=== PATIENT | male | born 1965 ===

== ENCOUNTER 2016-12-13 23:20 | Emergency (ER) | payer MEDICAID ==
[2016-12-13] MEDS ORDERED: Sodium Chloride 0.9% 1,000 ML IV STA (23:45)
--- NOTE | 2016-12-14 00:09 | ED PDOC ---
HPI: General Adult Time Seen by Provider: 12/13/16 23:43 Chief Complaint (Nursing): GI Problem Chief Complaint (Provider): fever, abd pain, diarrhea, headache, runny nose History Per: Patient History/Exam Limitations: no limitations Onset/Duration Of Symptoms: Days (1) Have you had recent travel within the past 21 days to any of the following countries: [place], [place], [place] or [place]?: No Current Symptoms Are (Timing): Still Present Additional Complaint(s): 51yo male with no PMHx presents to the ED with c/o fever, abd pain, watery diarrhea, headache, and runny nose x 1 day. Denies sick contacts or recent travel. Taking Claritin with no relief. Past Medical History Reviewed: Historical Data, Nursing Documentation, Vital Signs Vital Signs: Last Vital Signs Temp 101.4 F H 12/14/16 00:21 Pulse 93 H 12/13/16 23:38 Resp 16 12/13/16 23:38 BP 153/84 H 12/13/16 23:38 Pulse Ox 100 12/14/16 00:13 - Medical History PMH: No Chronic Diseases - Surgical History Surgical History: No Surg Hx - Family History Family History: States: No Known Family Hx - Home Medications Home Medications: Ambulatory Orders Medication Instructions Recorded Dicyclomine [Bentyl] 10 mg PO QID #20 cap 12/14/16 Ibuprofen [Motrin Tab] 600 mg PO Q6 #30 tab 12/14/16 Loperamide [Imodium] 2 mg PO PRN PRN #12 cap 12/14/16 - Allergies Allergies/Adverse Reactions: Allergies Allergy/AdvReac Type Severity Reaction Status Date / Time No Known Allergies Allergy Verified 12/13/16 23:38 Review of Systems ROS Statement: Except As Marked, All Systems Reviewed And Found Negative Constitutional: Positive for: Fever ENT: Positive for: Nose Discharge Gastrointestinal: Positive for: Abdominal Pain, Diarrhea Neurological: Positive for: Headache Physical Exam - Reviewed Nursing Documentation Reviewed: Yes Vital Signs Reviewed: Yes - Physical Exam Appears: Positive for: Well, No Acute Distress Head Exam: Positive for: ATRAUMATIC, NORMAL INSPECTION, NORMOCEPHALIC Skin: Positive for: Normal Color, Warm, Dry Eye Exam: Positive for: Normal appearance, EOMI, PERRL ENT: Positive for: Normal ENT Inspection Neck: Positive for: Normal, Painless ROM, Supple Cardiovascular/Chest: Positive for: Regular Rate, Rhythm. Negative for: Murmur , Tachycardia Respiratory: Positive for: Normal Breath Sounds. Negative for: Wheezing, Respiratory Distress Gastrointestinal/Abdominal: Positive for: Normal Exam, Bowel Sounds, Soft. Negative for: Tenderness Back: Positive for: Normal Inspection Extremity: Positive for: Normal ROM. Negative for: Deformity, Swelling Neurologic/Psych: Positive for: Alert, Oriented. Negative for: Motor/Sensory Deficits - Laboratory Results Result Diagrams: 12/14/16 00:10 12/14/16 00:10 - ECG O2 Sat by Pulse Oximetry: 100 Pulse Ox Interpretation: Normal (RA) Medical Decision Making Medical Decision Makin: Impression: URI vs. gastroenteritis Plan: Labs EKG CXR IVF, Toradol 15mg IVP, Tylenol 650mg PO flu swab reassess 0134: Patient feeling better. Instructed patient to f/u w/ Dr. Edmund Samayoa. Return precautions given and patient discharged at this time. Scribe Attestation: Documented by Misael Harrington acting as a scribe for Saravanan Middleton MD. Provider Scribe Attestation: All medical record entries made by the Scribe were at my direction and personally dictated by me. I have reviewed the chart and agree that the record accurately reflects my personal performance of the history, physical exam, medical decision making, and the department course for this patient. I have also personally directed, reviewed, and agree with the discharge instructions and disposition. Disposition - Clinical Impression Clinical Impression: Gastroenteritis - Patient ED Disposition Is Patient to be Admitted: No - Disposition Referrals: Edmund Samayoa MD [Primary Care Provider] - Disposition: Routine/Home Disposition Time: 01:34 Condition: STABLE Prescriptions: Dicyclomine [Bentyl] 10 mg PO QID #20 cap Loperamide [Imodium] 2 mg PO PRN PRN #12 cap PRN Reason: Diarrhea Ibuprofen [Motrin Tab] 600 mg PO Q6 #30 tab Instructions: Loperamide (By mouth), Acute Diarrhea (ED) Print Language: EMIRATI
[2016-12-14 00:32] LABS: BASO % 0.4 % (0.0-2.0); EOS # 0.1 K/uL (0.0-0.7); EOS % 0.9 % (0.0-4.0); HEMATOCRIT 44.9 % (35.0-51.0); LYMPH # 0.6 K/uL (1.0-4.3); LYMPH % 8.3 % (20.0-40.0); MEAN CELL VOLUME 80.4 fl (80.0-94.0); MEAN CORPUSCULAR HEMOGLOBIN 26.7 pg (27.0-31.0); MEAN CORPUSCULAR HGB CONC 33.2 g/dL (33.0-37.0); MEAN PLATELET VOLUME 9.5 fl (7.2-11.7); MONO # 0.6 K/uL (0.0-0.8); MONO % 7.8 % (0.0-10.0); NEUT # 6.1 K/uL (1.8-7.0); NEUT % 82.6 % (50.0-75.0); NRBC % 0.1 % (0.0-0.0); PLATELET COUNT 196 K/uL (130-400); RED CELL DISTRIBUTION WIDTH 14.3 % (11.5-14.5); WHITE BLOOD COUNT 7.4 K/uL (4.8-10.8)
[2016-12-14 00:38] LABS: ALB/GLOB RATIO 1.3 (1.0-2.1); ALKALINE PHOSPHATASE 56 U/L (38-126); ALT/SGPT 37 U/L (21-72); AST/SGOT 33 U/L (17-59); BILIRUBIN,TOTAL 0.7 mg/dl (0.2-1.3); BLOOD UREA NITROGEN 15 mg/dl (9-20); CALCIUM 9.5 mg/dL (8.4-10.2); CARBON DIOXIDE 26 mmol/L (22-30); CHLORIDE 101 mmol/L (98-107); GFR AFRICAN-AMERICAN > 60; GLUCOSE,RANDOM 112 mg/dL (75-110); LIPASE 40 U/L (23-300); POTASSIUM 3.8 MMOL/L (3.6-5.0); SODIUM 141 mmol/l (132-148)
[2016-12-14 01:42] LABS: EOSINOPHIL 3 % (0-7); NEUTROPHIL 87 % (42-75); TOTAL CELLS COUNTED 100
[2016-12-14 01:44] VITALS: BP 120/76; PULSE 72; RESP 18; TEMP 99.3; O2SAT 99
--- NOTE | 2016-12-14 08:21 | RAD ---
HISTORY: r/o PNA COMPARISON: No prior. FINDINGS: LUNGS: No active pulmonary disease. PLEURA: No significant pleural effusion identified, no pneumothorax apparent. CARDIOVASCULAR: Normal. OSSEOUS STRUCTURES: Thoracic spondylosis VISUALIZED UPPER ABDOMEN: Normal. OTHER FINDINGS: None. IMPRESSION: No active disease.
--- NOTE | 2016-12-14 21:28 | CARD ---
APPROVED REPORT EKG Measurement Heart [id number] <Conclusion> Normal sinus rhythm Normal ECG
== END 2016-12-14 01:47 | disposition home or self-care (01) ==
LOC: H.ER 23:20
DX: K52.9 Noninfective gastroenteritis and colitis, unspecified (principal); R19.7 Diarrhea, unspecified; R51 Headache; R50.9 Fever, unspecified

== ENCOUNTER 2017-10-18 18:28 | Emergency (ER) | payer MEDICAID ==
[2017-10-18 20:17] VITALS: RESP 16
--- NOTE | 2017-10-18 21:23 | ED PDOC ---
HPI: CCC, URI, Sore Throat Time Seen by Provider: 10/18/17 20:39 Chief Complaint (Nursing): Flu-like Symptoms Chief Complaint (Provider): flu-like symptoms History Per: Patient History/Exam Limitations: no limitations Onset/Duration Of Symptoms: Days (2) Current Symptoms Are (Timing): Still Present Location Of Pain: Ear(s), Throat, Diffuse Myalgias, Headache Associated Symptoms: Fever, Chills, Cough, Sputum, Myalgias Additional History Per: Patient Additional Complaint(s): 52 y/o male presents with flu-like symptoms x 2 days. Patient reports fever, headache, bodyaches, chills, productive cough. Denies nausea/vomiting, chest pain, shortness of breath, abdominal pain, changes in bowel movements, recent travel, sick contacts. No medication taken for relief thus far. Past Medical History Reviewed: Historical Data, Nursing Documentation, Vital Signs Vital Signs: Last Vital Signs Temp 100.1 F H 10/18/17 22:47 Pulse 78 10/18/17 22:47 Resp 16 10/18/17 22:47 BP 126/73 10/18/17 22:47 Pulse Ox 92 L 10/18/17 22:47 - Medical History PMH: No Chronic Diseases - Surgical History Surgical History: No Surg Hx - Family History Family History: States: No Known Family Hx - Home Medications Home Medications: Ambulatory Orders Medication Instructions Recorded Dicyclomine [Bentyl] 10 mg PO QID #20 cap 12/14/16 Ibuprofen [Motrin Tab] 600 mg PO Q6 #30 tab 12/14/16 Loperamide [Imodium] 2 mg PO PRN PRN #12 cap 12/14/16 Ibuprofen [Motrin Tab] 1 tab PO Q6 PRN #20 tab 10/18/17 Oseltamivir [Tamiflu] 75 mg PO BID #9 cap 10/18/17 - Allergies Allergies/Adverse Reactions: Allergies Allergy/AdvReac Type Severity Reaction Status Date / Time No Known Allergies Allergy Verified 10/18/17 20:14 Review of Systems ROS Statement: Except As Marked, All Systems Reviewed And Found Negative Constitutional: Positive for: Fever, Chills Respiratory: Positive for: Cough Physical Exam - Reviewed Nursing Documentation Reviewed: Yes Vital Signs Reviewed: Yes - Physical Exam Appears: Positive for: Well, Non-toxic, No Acute Distress Head Exam: Positive for: ATRAUMATIC, NORMAL INSPECTION, NORMOCEPHALIC Skin: Positive for: Normal Color Eye Exam: Positive for: Normal appearance ENT: Positive for: Normal ENT Inspection Cardiovascular/Chest: Positive for: Regular Rate, Rhythm Respiratory: Positive for: Normal Breath Sounds Gastrointestinal/Abdominal: Positive for: Normal Exam Back: Positive for: Normal Inspection Extremity: Positive for: Normal ROM Neurologic/Psych: Positive for: Alert, Oriented - ECG O2 Sat by Pulse Oximetry: 100 - Radiology X-Ray: Viewed By Hi X-Ray Interpretation: No Acute Disease - Progress ED Course And Treament: Ibuprofen, chest xray Patient educated on findings, discharged with rx Tamiflu (dose given in ED), Ibuprofen Advised fluids, rest. Follow up PMD 2-3 days. Return precautions given. Disposition - Clinical Impression Clinical Impression: Influenza-like symptoms - Patient ED Disposition Is Patient to be Admitted: No Counseled Patient/Family Regarding: Studies Performed, Diagnosis, Need For Followup, Rx Given - Disposition Disposition: Routine/Home Disposition Time: 23:06 Condition: IMPROVED Prescriptions: Ibuprofen [Motrin Tab] 1 tab PO Q6 PRN #20 tab PRN Reason: Fever >100.4 F Oseltamivir [Tamiflu] 75 mg PO BID #9 cap Instructions: Influenza (ED) Forms: [employer] (Vietnamese)
[2017-10-18 22:48] VITALS: BP 126/73; PULSE 78; TEMP 100.1
[2017-10-18 23:08] VITALS: O2SAT 97
--- NOTE | 2017-10-19 11:38 | RAD ---
HISTORY: fever, cough COMPARISON: No prior. TECHNIQUE: Chest PA and lateral FINDINGS: LUNGS: Slight increased/ coarsened interstitial markings ; rule out sequela of reactive/inflammatory airway disease or viral illness PLEURA: No significant pleural effusion identified. No pneumothorax apparent. CARDIOVASCULAR: Normal. OSSEOUS STRUCTURES: No significant abnormalities. VISUALIZED UPPER ABDOMEN: Normal. OTHER FINDINGS: None. IMPRESSION: Slight increased/ coarsened interstitial markings ; rule out sequela of reactive/inflammatory airway disease or viral illness
== END 2017-10-18 23:20 | disposition home or self-care (01) ==
LOC: H.ER 18:28
DX: J11.1 Influenza due to unidentified influenza virus with other respiratory manifestations (principal)

== ENCOUNTER 2017-11-23 10:15 | Emergency (ER) | payer MEDICAID ==
[2017-11-23 10:19] VITALS: BMI 27.1
[2017-11-23 10:21] VITALS: BP 149/94; PULSE 83; RESP 20; TEMP 98.5; O2SAT 97
--- NOTE | 2017-11-23 10:42 | ED PDOC ---
HPI: CCC, URI, Sore Throat Time Seen by Provider: 11/23/17 10:33 Chief Complaint (Nursing): Headache History Per: Patient Onset/Duration Of Symptoms: Days (2) Location Of Pain: Throat, Headache Associated Symptoms: Fever, Sore Throat, Cough, Sputum Severity: Mild Additional Complaint(s): Cough productive yellow sputum assoc with fever and headache x 2 days. denies SOB or chest pain Past Medical History Vital Signs: Last Vital Signs Temp 98.5 F 11/23/17 10:19 Pulse 83 11/23/17 10:19 Resp 20 11/23/17 10:19 BP 149/94 H 11/23/17 10:19 Pulse Ox 97 11/23/17 11:22 - Medical History PMH: No Chronic Diseases - Family History Family History: States: Unknown Family Hx - Immunization History Hx Tetanus Toxoid Vaccination: No Hx Influenza Vaccination: No Hx Pneumococcal Vaccination: No - Home Medications Home Medications: Ambulatory Orders Medication Instructions Recorded Dicyclomine [Bentyl] 10 mg PO QID #20 cap 12/14/16 Ibuprofen [Motrin Tab] 600 mg PO Q6 #30 tab 12/14/16 Loperamide [Imodium] 2 mg PO PRN PRN #12 cap 12/14/16 Ibuprofen [Motrin Tab] 1 tab PO Q6 PRN #20 tab 10/18/17 Oseltamivir [Tamiflu] 75 mg PO BID #9 cap 10/18/17 Levofloxacin [Levaquin] 500 mg PO DAILY #10 tablet 11/23/17 - Allergies Allergies/Adverse Reactions: Allergies Allergy/AdvReac Type Severity Reaction Status Date / Time No Known Allergies Allergy Verified 10/18/17 20:14 Review of Systems ROS Statement: Except As Marked, All Systems Reviewed And Found Negative Constitutional: Positive for: Fever Respiratory: Positive for: Cough Neurological: Positive for: Headache Physical Exam - Physical Exam Appears: Positive for: Non-toxic, No Acute Distress Skin: Positive for: Normal Color, Warm, DRY ENT: Positive for: Normal ENT Inspection Neck: Positive for: Normal, Supple Cardiovascular/Chest: Positive for: Regular Rate, Rhythm Respiratory: Positive for: Rhonchi. Negative for: Wheezing, Respiratory Distress Extremity: Positive for: Normal ROM Neurologic/Psych: Positive for: Alert, Oriented - ECG O2 Sat by Pulse Oximetry: 97 Medical Decision Making Medical Decision Making: Denies hemptysis, weight loss night sweats, No travel outside [place]. No risk factors for TB Will DC on augmentin and have pt f/u with Dr. Bob in [facility] Disposition - Clinical Impression Clinical Impression: Pneumonia - Patient ED Disposition Is Patient to be Admitted: No Counseled Patient/Family Regarding: Studies Performed, Diagnosis, Need For Followup, Rx Given - Disposition Referrals: [facility] [Outside] Disposition: Routine/Home Disposition Time: 11:22 Condition: FAIR Additional Instructions: Follow up with Dr. Bob [facility] next Monday Prescriptions: Levofloxacin [Levaquin] 500 mg PO DAILY #10 tablet Instructions: Pneumonia in Adults Forms: [employer] (Welsh)
--- NOTE | 2017-11-23 11:26 | RAD ---
HISTORY: cough COMPARISON: 10/18/2017 TECHNIQUE: Chest PA and lateral FINDINGS: LUNGS: Right upper lobe consolidative infiltrate -an interval change is noted. Follow-up to complete resolution recommended PLEURA: No significant pleural effusion identified. No pneumothorax apparent. CARDIOVASCULAR: Top-normal heart size . Right hilar tomi densities - slightly more conspicuous on prior study-a hyperplastic lymph node is 1 consideration given the right upper lobe non contiguous consolidative infiltrate/pneumonia suggested. Follow-up to complete resolution recommended. OSSEOUS STRUCTURES: No significant abnormalities. Probable tiny 2 mm accessory ossifications centers/developmental variants bordering the left glenoid rim - no change VISUALIZED UPPER ABDOMEN: Normal. OTHER FINDINGS: None. IMPRESSION: Interval right upper lobe infiltrate compatible with a clinically suspect pneumonia history. The right hilar tomi shaped soft tissue density compatible with prominent vessels and/or a hyperplastic lymph node. Follow-up chest x-ray imaging recommended to ensure complete resolution. If persistent, than a CT chest with IV contrast would be recommended
[2017-11-25 01:33] LABS: TB ANTIGEN MINUS NIL <0.00 IU/mL
== END 2017-11-23 11:37 | disposition home or self-care (01) ==
LOC: H.ER 10:15
DX: J18.9 Pneumonia, unspecified organism (principal); R51 Headache

== ENCOUNTER 2018-09-03 09:43 | Emergency (ER) | payer MEDICAID ==
[2018-09-03 09:47] VITALS: BMI 28.3
[2018-09-03 09:49] VITALS: TEMP 98.5; O2SAT 97
--- NOTE | 2018-09-03 10:09 | ED PDOC ---
HPI: CCC, URI, Sore Throat Time Seen by Provider: 09/03/18 09:49 Chief Complaint (Provider): Ear noise History Per: Patient History/Exam Limitations: no limitations Have you had recent travel within the past 21 days to any of the following countries: [place], [place], [place] or [place]?: No Onset/Duration Of Symptoms: Days (yesterday) Additional Complaint(s): Pt. had a cough, congestion, runny nose for 1 week. Went away . Since the 1 week, he has had right ear congestion, and hears a noise off and on. No cough, congestion, runny nose currently. No chest pain, dyspnea, neck pain, numbness, tingles, weakness, hearing loss. No ASA use. No new meds, injury, pain. Past Medical History Reviewed: Nursing Documentation, Vital Signs Vital Signs: Last Vital Signs Temp 98.5 F 09/03/18 09:47 Pulse 76 09/03/18 09:47 Resp 17 09/03/18 09:47 BP 162/109 H 09/03/18 09:47 Pulse Ox 97 09/03/18 09:47 - Medical History PMH: No Chronic Diseases - Surgical History Surgical History: No Surg Hx - Family History Family History: States: Unknown Family Hx - Living Arrangements Living Arrangements: With Family - Immunization History Hx Tetanus Toxoid Vaccination: No Hx Influenza Vaccination: No Hx Pneumococcal Vaccination: No - Home Medications Home Medications: Ambulatory Orders Medication Instructions Recorded Dicyclomine [Bentyl] 10 mg PO QID #20 cap 12/14/16 Ibuprofen [Motrin Tab] 600 mg PO Q6 #30 tab 12/14/16 Loperamide [Imodium] 2 mg PO PRN PRN #12 cap 12/14/16 Ibuprofen [Motrin Tab] 1 tab PO Q6 PRN #20 tab 10/18/17 Oseltamivir Cap [Tamiflu] 75 mg PO BID #9 cap 10/18/17 Levofloxacin [Levaquin] 500 mg PO DAILY #10 tablet 11/23/17 Amoxicillin 500 mg PO BID 7 Days tablet 09/03/18 - Allergies Allergies/Adverse Reactions: Allergies Allergy/AdvReac Type Severity Reaction Status Date / Time No Known Allergies Allergy Verified 10/18/17 20:14 Review of Systems Constitutional: Negative for: Fever, Weakness ENT: Positive for: Nose Discharge, Nose Congestion Cardiovascular: Negative for: Chest Pain Respiratory: Positive for: Cough. Negative for: Shortness of Breath Gastrointestinal: Negative for: Nausea, Vomiting, Abdominal Pain Musculoskeletal: Negative for: Neck Pain Neurological: Negative for: Weakness, Numbness, Confusion, Headache, Dizziness Physical Exam - Reviewed Nursing Documentation Reviewed: Yes Vital Signs Reviewed: Yes - Physical Exam Appears: Positive for: Well, Non-toxic, No Acute Distress Head Exam: Positive for: ATRAUMATIC, NORMAL INSPECTION, NORMOCEPHALIC Skin: Positive for: Normal Color, Warm, DRY ENT: Positive for: TM Is/Are (R TM with retraction, ? mild erythema around it; L TM with no issues.). Negative for: Nasal Congestion, Pharyngeal Erythema Neck: Positive for: Normal, Painless ROM, Supple Cardiovascular/Chest: Positive for: Regular Rate, Rhythm Respiratory: Positive for: Normal Breath Sounds Back: Positive for: Normal Inspection. Negative for: L CVA Tenderness, R CVA Tenderness Extremity: Positive for: Normal ROM. Negative for: Tenderness, Pedal Edema Neurologic/Psych: Positive for: Alert, production clerks supervisor II-XII, Oriented, Other (no hearing deficits) - ECG O2 Sat by Pulse Oximetry: 97 - Progress ED Course And Treament: 1007: Stable. Pt. aware of bp elevation. Fu with pcp. Has no headaches, chest pain, dizziness, weakness. Amnulated with no issues. Tolerates PO. AAOx3. Disposition - Clinical Impression Clinical Impression: Ear congestion, Otitis media, HTN (hypertension) - Patient ED Disposition Is Patient to be Admitted: No - Disposition Referrals: [facility] [Outside] - 09/05/18 Omar Patel MD [Staff Provider] - 09/05/18 Disposition: Routine/Home Disposition Time: 10:08 Condition: STABLE Additional Instructions: Return if not better in 3 days. Prescriptions: Amoxicillin 500 mg PO BID 7 Days tablet Instructions: Ear Infections (Otitis Media), High Blood Pressure in Adults Forms: [facility] ED School/Work Excuse Print Language: ESTONIAN
[2018-09-03 11:00] VITALS: BP 155/92; PULSE 72; RESP 18
== END 2018-09-03 10:38 | disposition home or self-care (01) ==
LOC: H.ER 09:43
DX: H83.8X9 Other specified diseases of inner ear, unspecified ear (principal); H66.90 Otitis media, unspecified, unspecified ear; I10 Essential (primary) hypertension